=== PATIENT | female | born 1950 | race Caucasian/White ===

== ENCOUNTER → 2018-06-29 | Outpatient (CLI) | payer MEDICAID ==
--- NOTE | 2018-06-29 12:58 | RADIOLOGY REPORT (SQ) ---
EXAM DESCRIPTION: CHEST PA/LATERAL COMPLETED DATE/TIME: 06/29/2018 12:24 pm REASON FOR STUDY: COUGH COMPARISON: AP chest 03/29/2015, 08/28/2015, 01/29/2016 EXAM PARAMETERS: NUMBER OF VIEWS: two views TECHNIQUE: Digital Frontal and Lateral radiographic views of the chest acquired. RADIATION DOSE: NA LIMITATIONS: none FINDINGS: LUNGS AND PLEURA: Pulmonary vascular congestion. Few Cecile lines at both bases indicatin g interstitial edema. Minimal right basilar atelectasis. No pleural effusions. No pneumothorax. MEDIASTINUM AND HILAR STRUCTURES: No masses or contour abnormalities. HEART AND VASCULAR STRUCTURES: Stable moderate cardiomegaly BONES: No acute findings. HARDWARE: None in the chest. OTHER: No other significant finding. IMPRESSION: Fluid overload or congestive failure with pulmonary vascular congestion and mild interst itial edema TECHNICAL DOCUMENTATION: JOB ID: [id number] [employer]- All Rights Reserved Reading location - IP/workstation name: [email or web address]
== END ==
LOC: OD 11:50
PROVIDERS: ATTEND Nurse Practitioner Acute Care
DX: R05 Cough (principal); N30.00 Acute cystitis without hematuria
CPT/HCPCS: 71046; 87086; 87088

== ENCOUNTER → 2018-07-21 | Outpatient (CLI) | payer MEDICARE, MEDICAID ==
--- NOTE | 2018-07-21 22:21 | XCELERA REPORT ---
[address] [address] Transthoracic Echocardiogram Report Name: LESLEY ZAYAS Age: 67 yrs Gender: Female : 1950 Patient Status: Outpatient Patient Location: Study Date: 07/21/2018 08:37 AM Height: 64 in Weight: 160 lb BSA: 1.8 m2 Reason For Study: CHF Ordering Physician: ANISH TIMMONS Performed By: Jeronimo Marin Interpretation Summary Poor study with poor endocardial definition LV in PLAX and apical view, in particular no A2C view. and no Biplane LVEF calculation. Small post peric. effusion. Calcified non-dilated aortic root. Mild calcific with trace AR PHT 518ms. AV PPG is 20 mm Hg., No LV enlargement, LVESD 36 mm Mod mitral annular calcification. , No MVP, no MS, trace MR with no LA enlargement, M mode measured 36 mm. No NATALIO measured by indoor plant technician. No LVH, endocardial definition in PLAX and apical views. lila apical 2 chamber view not vailable . Incomplete LV segmental analysis., see pictorals. LVEF estimated 40-45% mildly depressed, with stage I LVDD. and no LV enlargement. RH poorly seen, mild TR with RVSP 29mm Hg. Trace NV . MMode/2D Measurements & Calculations RVDd: 3.4 cm LVIDd: 5.0 cm FS: 24.6 % Ao root diam: 3.2 cm IVSd: 0.93 cm LVIDs: 3.8 cm EDV(Teich): 117.7 ml LVPWd: 0.95 cm ESV(Teich): 60.4 ml Ao root area: 8.2 cm2 LA dimension: 3.2 cm EF(Teich): 48.7 % Doppler Measurements & Calculations MV E max kay: MV P1/2t max kay: Ao V2 max: AI max kay: 67.1 cm/sec 59.7 cm/sec 223.7 cm/sec 438.2 cm/sec MV A max kay: MV P1/2t: 60.4 msec Ao max PG: AI max P.8 mmHg 114.0 cm/sec MVA(P1/2t): 3.6 cm2 20.0 mmHg AI dec slope: MV E/A: 0.59 MV dec slope: 246.7 cm/sec2 AI P1/2t: 520.2 msec 289.5 cm/sec2 MV dec time: 0.19 sec LV V1 max PG: PA V2 max: TR max kay: AV P1/2t-pr_phl: 2.5 mmHg 66.6 cm/sec 253.4 cm/sec 520.2 msec LV V1 max: PA max P.8 mmHg TR max P.3 cm/sec 25.7 mmHg MV P1/2t-pr_phl: 60.4 msec Left Ventricle The left ventricle is normal in size, thickness and function. Doppler measurements suggest impaired left ventricular relaxation, which is associated with grade I/IV or mild diastolic dysfunction. Not all wall segments were well visualized. There is no thrombus. Right Ventricle The right ventricle is grossly normal size. Atria The right atrium is normal in size. The left atrial size is normal. There is no Doppler evidence for an interatrial shunt. Mitral Valve The mitral valve is normal in structure and function. There is moderate mitral annular calcification. There is no evidence of mitral valve prolapse. There is no mitral valve stenosis. There is a trace amount of mitral regurgitation. Aortic Valve The aortic valve is trileaflet. The aortic valve is sclerotic and shows some degree of functional abnormality. Cannot exclude aortic valvular vegetation. There is mild aortic stenosis. There is a trace amount of aortic regurgitation. PHT 518ms. Tricuspid Valve The tricuspid valve is not well visualized secondary to technical limitations. Best estimated RVSP is approximately 29 mm/Hg. I WMSI = 1.60 % Normal = 60 Segments Size X - Cannot 2 - 4 - 1-2 small Interpret 1 - Normal Hypokinetic 3 - AkineticDyskinetic 3-5 moderate 5 - 6-14 large Aneurysmal 15-16 diffuse : ANISH TIMMONS > Vitaliy Ospina
== END ==
LOC: SP 08:21 → MERGE 08:21
PROVIDERS: ATTEND Family Medicine
DX: I50.9 Heart failure, unspecified (principal)
CPT/HCPCS: 93306

== ENCOUNTER 2019-11-24 01:20 | Emergency (ER) | payer MEDICARE, MEDICAID ==
[2019-11-24] MEDS ORDERED: LIDOCAINE 1% INJ-PF (10 MG/ML) 30 ML SDV NEB ONE (02:58)
[2019-11-24 04:26] LABS: ANION GAP 10 (5-19); BLOOD UREA NITROGEN 12 mg/dL (7-20); CALCIUM 9.3 mg/dL (8.4-10.2); CARBON DIOXIDE 22 mmol/L (22-30); CHLORIDE 105 mmol/L (98-107); GLUCOSE 102 mg/dL (75-110); POTASSIUM 4.6 mmol/L (3.6-5.0)
--- NOTE | 2019-11-24 04:37 | RADIOLOGY REPORT (SQ) ---
Chest single view on 11/24/2019 at 3:15 AM CLINICAL INDICATION: Persistent cough COMPARISON: 06/29/2018 FINDINGS: Mild cardiomegaly is noted. Vascular calcification is noted in the aorta. Multiple wires are noted projecting over the chest. There is slight elevation of the right hemidiaphragm. The lungs are clear. Hilar and mediastinal contours are within normal limits. Pulmonary vascularity is within normal limits. 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 IMPRESSION: No acute disease.
[2019-11-24 05:10] LABS: ABSOLUTE BASOPHILS # (AUTO) 0.1 10^3/uL (0.0-0.2); ABSOLUTE EOSINOPHILS # (AUTO) 0.2 10^3/uL (0.0-0.6); ABSOLUTE LYMPHOCYTES (AUTO) 2.9 10^3/uL (0.5-4.7); ABSOLUTE MONOCYTES (AUTO) 0.5 10^3/uL (0.1-1.4); ABSOLUTE NEUT (AUTO) 3.4 10^3/uL (1.7-8.2); BASOPHILS % (AUTO) 0.9 % (0-2); HEMATOCRIT 38.9 % (36.0-47.0); HEMOGLOBIN 13.5 g/dL (12.0-15.5); LYMPHOCYTES % (AUTO) 40.5 % (13-45); MEAN CORPUSCULAR HGB CONC 34.6 g/dL (32.0-36.0); MEAN CORPUSCULAR VOLUME 84 fl (80-97); MONOCYTES % (AUTO) 7.8 % (3-13); PLATELET COUNT 242 10^3/uL (150-450); RED BLOOD COUNT 4.64 10^6/uL (3.72-5.28); RED CELL DISTRIBUTION WIDTH 14.9 % (11.5-14.0); SEGMENTED NEUTROPHILS % (AUTO) 47.8 % (42-78); TOTAL CELLS COUNTED % (AUTO) 100 %; WHITE BLOOD COUNT 7.1 10^3/uL (4.0-10.5)
--- NOTE | 2019-11-24 05:29 | ER Document Report ---
ED Respiratory Problem - General Chief Complaint: Cough Stated Complaint: COUGH Time Seen by Provider: 11/24/19 02:34 Primary Care Provider: ERUM CALDWELL NP [Primary Care Provider] - Follow up as needed Notes: Patient is a 69-year-old female that comes emergency department for chief complaint of a cough. The cough is been present for the past 2 days but is worsening, patient reports occasional sputum production. Patient smokes, has a history of COPD, although she denies shortness of breath. She denies chest ana n, fever, swelling in her legs, or any other complaints. She comes from home by EMS. She lives with her and daughter. Remaining medical history includes PE on anticoagulation, schizophrenia, hypertension, CVA with chronic deficits including dementia. TRAVEL OUTSIDE OF THE [place] IN LAST 30 DAYS: No - Related Data Allergies/Adverse Reactions: No Known Allergies Allergy (Verified 01/29/16 18:11) Past Medical History - General Information source: Patient - Social History Smoking Status: Current Every Day Smoker Smoking Education Provided: Yes - <3 min Frequency of alcohol use: None Drug Abuse: None Family History: Reviewed & Not Pertinent Patient has suicidal ideation: No Patient has homicidal ideation: No - Past Medical History Cardiac Medical History: Reports: Hx Hypertension Denies: Hx Congestive Heart Failure, Hx DVT, Hx Pulmonary Embolism Neurological Medical History: Reports: Hx Cerebrovascular Accident - left hemiparesis Psychiatric Medical History: Reports: Hx Depression, Hx Schizophrenia Past Surgical History: Reports: Hx Appendectomy, Hx Tonsillectomy - Immunizations Hx Diphtheria, Pertussis, Tetanus Vaccination: Yes Review of Systems - Review of Systems Constitutional: See HPI EENT: No symptoms reported Cardiovascular: No symptoms reported Respiratory: See HPI Gastrointestinal: No symptoms reported Genitourinary: No symptoms reported Female Genitourinary: No symptoms reported Musculoskeletal: No symptoms reported Skin: No symptoms reported Hematologic/Lymphatic: No symptoms reported Neurological/Psychological: No symptoms reported Physical Exam - Vital signs Vitals: Resp Pulse Ox 28 H 92 11/24/19 01:51 11/24/19 01:51 - Notes Notes: GENERAL: Alert, interacts well. No acute distress. HEAD: Normocephalic, atraumatic. EYES: Pupils equal, round, and reactive to light. Extraocular movements intact. ENT: Oral mucosa moist, tongue midline. Oropharynx unremarkable. Airway patent. Nares patent, no nasal septal hematoma, TM's intact. NECK: Full range of motion. Supple. Trachea midline. LUNGS: Clear to auscultation bilaterally, no wheezes, rales, or rhonchi. Almost persistent cough HEART: Regular rate and rhythm. No murmur ABDOMEN: Soft, non-tender. Non-distended. EXTREMITIES: Moves all 4 extremities spontaneously. No edema, normal radial and dorsalis pedis pulses bilaterally. No cyanosis. BACK: no cervical, thoracic, lumbar midline tenderness. No saddle anesthesia, normal distal neurovascular exam. Moves all extremities in full range of motion. NEUROLOGICAL: Alert and oriented x3. Intermittently difficult to understand wit h mild slurring. Very hard of hearing. Cranial nerves II through XII grossly intact otherwise. PSYCH: Normal affect, normal mood. SKIN: Warm, dry, normal turgor. No rashes or lesions noted. Course - Re-evaluation Re-evalutation: Patient with a very frequent almost constant cough initially. After nebulized lidocaine this did resolve. Her lungs are clear however, she has no respiratory distress, no hypoxia. She does have episodes of productive cough occasionally. No fever, no tachycardia, patient is smiling and well-appearing generally. No complaints of chest pain or shortness of breath, no lower extremity swelling. Chest x-ray negative, CBC, chemistry unremarkable. On reevaluation daughter is now at bedside who stays with the patient. Patient reportedly gets bronchitis frequently, also frequently gets pneumonia. They are requesting treatment prophylactically. Patient will be treated for productive cough in the setting of COPD, discussed options as well, decision was made not to give steroids but she will instead be provided with spacer and inhaler. She will follow close with primary care, discussed medical cessation, discussed return precautions. They state appreciation and agreement. Stable at time of discharge. - Vital Signs Vital signs: Temp Pulse Resp BP Pulse Ox 98.5 F 89 22 H 156/107 H 96 11/24/19 05:57 11/24/19 05:55 11/24/19 05:55 11/24/19 05:55 11/24/19 05:55 - Laboratory Result Diagrams: 11/24/19 04:57 11/24/19 03:47 Laboratory results interpreted by me: 11/24/19 04:57 RDW 14.9 H Discharge - Discharge Clinical Impression: Cough, Tobacco abuse Condition: Stable Disposition: HOME, SELF-CARE Additional Instructions: Your evaluation is reassuring, no pneumonia or fluid are seen. No other concerning findings are noted. I suspect you have bronchitis. Use the inhaler as prescribed with the spacer, take the antibiotics as prescribed to completion. Follow-up in the next several days with your primary care provider for additional management. Stop smoking. Return if you worsen including chest pain, difficulty breathing, spiking fever, or any other concerning or worsening symptoms. Prescriptions: Doxycycline Hyclate 100 mg PO BID #14 capsule Albuterol Sulfate [Proair HFA Inhalation Aerosol 8.5 gm MDI] 2 puff IH Q4H PRN #1 mdi PRN Reason: Referrals: ERUM CALDWELL NP [Primary Care Provider] - Follow up as needed
[2019-11-24] MEDS ORDERED: ALBUTEROL SULFATE HFA (90 MCG/PUFF) 8 GM MDI (1 MDI/ER DISP) IH ONE (05:43)
[2019-11-24 05:57] VITALS: BP 156/107
== END 2019-11-24 06:26 | disposition home or self-care (01) ==
LOC: ER 01:20
DX: R05 Cough (principal); F17.200 Nicotine dependence, unspecified, uncomplicated; J44.9 Chronic obstructive pulmonary disease, unspecified; Z86.711 Personal history of pulmonary embolism; Z79.01 Long term (current) use of anticoagulants; F20.9 Schizophrenia, unspecified; I10 Essential (primary) hypertension; Z86.73 Personal history of transient ischemic attack (TIA), and cerebral infarction without residual deficits
CPT/HCPCS: 94640; 99284; 36415; 85025; 80048; 71045; J3490; A9270